=== PATIENT | female | born 1950 | race Caucasian/White ===

== ENCOUNTER 2016-12-12 22:39 | Emergency (ER) | payer OTHER ==
[~2016-12-12] VITALS: Ht 170.2 cm; Wt 99.8 kg
[2016-12-12] MEDS ORDERED: CALC500T21 PO (22:54)
[2016-12-12] MEDS ORDERED: OMEP40CA2 PO (22:54)
[2016-12-12] MEDS ORDERED: ASPI1TAB15 PO (22:54)
[2016-12-12] MEDS ORDERED: ATEN100T PO (22:54)
[2016-12-12] MEDS ORDERED: ATOR40TA75 PO (22:54)
[2016-12-12] MEDS ORDERED: VITA500C24 PO (22:54)
[2016-12-12] MEDS ORDERED: VITA500T53 PO (22:54)
[2016-12-13] MEDS ORDERED: CIPROFLOXACIN 0.3% OPHTH SOLN 2.5ML OD ONE (00:30)
[2016-12-13 00:43] VITALS: BP 176/89
== END 2016-12-13 00:41 | disposition home or self-care (01) ==
LOC: M ED 23:56
DX: H10.31 Unspecified acute conjunctivitis, right eye (principal); I10 Essential (primary) hypertension; K21.9 Gastro-esophageal reflux disease without esophagitis; Z79.82 Long term (current) use of aspirin; Z79.899 Other long term (current) drug therapy; Z90.79 Acquired absence of other genital organ(s); Z90.89 Acquired absence of other organs